=== PATIENT | male | born 1980 | race Caucasian/White ===

== ENCOUNTER 2017-01-20 09:21 | Emergency (ER) | payer SELFPAY ==
[~2017-01-20] VITALS: Wt 80.0 kg
[2017-01-20] MEDS ORDERED: LORAZEPAM 2 MG INJ IV STA (09:23)
[2017-01-20] MEDS ORDERED: SOD CHLORIDE 0.9% 1,000 ML IV STA (09:23)
[2017-01-20 09:24] VITALS: Wt 80.0 kg
[2017-01-20] MEDS ORDERED: OLANZAPINE (ODT) 5 MG TAB ODT ONE (09:30)
--- NOTE | 2017-01-20 09:51 | PSY ---
Date/Time of Note Date/Time of Note DATE: 01/20/17 TIME: 12:47 Psychiatric Subjective Eval Consent Pt consented to telemedicine: Yes Subjective Evaluation Patient location: emergency Chief Complaint: ams found by bystander with psychomotor agitation possible from meth use History of present illness HPI: The patient is a 37 yo male (possibly to female transgender as pt prefers to be called "Jaylyn") patient with a self reported ho schizophrenia and bipolar disorder. Very limited interview due to severe psychosis. Reprots was using meth and has SI. Was unable to report anything else. past Psych Hx: pt reports ho schizophrenia, unable to report anything else due to psychosis PMhx: unable to report anything else due to psychosis Meds: unable to report anything else due to psychosis All: unable to report anything else due to psychosis MSe: pt rocking head back and forth, moaning vs conversing with likely AVH[facility] ( very internally preoccupied), barely able to enage in an interview, does report si Imp 37 yo male with ho psychosis with marked psychosis in context of methamphetamine use -risperidone 2mg po and atiavn 2mg po X1 now -for moderate agitation risperidone 2mg po and atiavn 2mg po prn -for severe agitation haldol 5mg IM, ativan 2mg IM, cogentin 1mg IM -utox -pt will eed 5150 due to grave disability Allergies: Coded Allergies: Unknown: Unable to obtain (Unverified , 01/20/17) BJORN LECHUGA Jan 20, 2017 09:51
[2017-01-20 09:58] LABS: ADD SCAN DIFF NO
[2017-01-20 10:15] LABS: BASOPHILS % 0.3 % (0.0-2.0); HEMATOCRIT 37.4 % (42.0-52.0); HEMOGLOBIN 12.7 g/dl (14.0-18.0); LYMPHOCYTES # 1.5 10^3/ul (0.8-2.9); MEAN CORPUSCULAR HEMOGLOBIN 30.6 pg (29.0-33.0); MEAN CORPUSCULAR VOLUME 90.1 fl (82.0-101.0); MONOCYTE # 0.8 10^3/ul (0.3-0.9); MONOCYTES % 9.8 % (0.0-11.0); NEUTROPHIL # 6.2 10^3/ul (1.6-7.5); NEUTROPHILS % 72.6 % (39.0-77.0); PLATELET COUNT 249 10^3/UL (140-415); RED BLOOD COUNT 4.15 10^6/ul (4.70-6.10); RED CELL DISTRIBUTION WIDTH 12.1 % (11.5-14.5); WHITE BLOOD COUNT 8.6 10^3/ul (4.8-10.8)
[2017-01-20 10:29] LABS: ALANINE AMINOTRANSFERASE 132 IU/L (13-69); ALBUMIN 4.8 g/dl (3.3-4.9); ALBUMIN/GLOBULIN RATIO 1.54; ALKALINE PHOSPHATASE 51 IU/L (42-121); ANION GAP 25 (8-16); ASPARTATE AMINO TRANSFERASE 117 IU/L (15-46); BILIRUBIN,INDIRECT 0.9 mg/dl (0-1.1); BILIRUBIN,TOTAL 0.9 mg/dl (0.2-1.3); BLOOD UREA NITROGEN 19 mg/dl (7-20); CALCIUM 9.4 mg/dl (8.4-10.2); CARBON DIOXIDE 20 mmol/L (21-31); CHLORIDE 95 mmol/L (97-110); CREATININE 0.86 mg/dl (0.61-1.24); GLUCOSE 115 mg/dl (70-220); POTASSIUM 3.5 mmol/L (3.5-5.1); SODIUM 136 mmol/L (135-144); TOTAL PROTEIN 7.9 g/dl (6.1-8.1)
[2017-01-20 10:39] LABS: ETHANOL < 10.0 mg/dl
[2017-01-20] MEDS ORDERED: LORAZEPAM 1 MG TAB PO ONE (11:00)
[2017-01-20] MEDS ORDERED: RISPERIDONE 2 MG TAB PO ONE (11:00)
[2017-01-20 11:37] LABS: ACETAMINOPHEN < 10.0 ug/ml (10.0-30.0); SALICYLATE < 1.0 mg/dl (5.0-30.0)
--- NOTE | 2017-01-20 12:56 | ERA ---
ER Documentation Chief Complaint Date/Time DATE: 01/20/17 TIME: 12:52 Chief Complaint ams found by bystander with psychomotor agitation possible from meth use HPI Patient is a 37-year-old male with schizophrenia, bipolar disorder, and anxiety who presents with saying that he is having an anxiety attack and wants to kill himself. He was brought in by ambulance. He said that he smoked methamphetamines last night. He was brought in because a bystander called 911 and he was acting bizarre. He says "I am trying to kill myself". He denies homicidal ideation. Upon review of old medical records this is the patient's first visit to the emergency department. ROS All systems reviewed and are negative except as per history of present illness. Medications Home Meds Unable to Obtain Active Prescriptions or Reported Meds Allergies Allergies: Coded Allergies: Unknown: Unable to obtain (Unverified , 01/20/17) PMhx/Soc Hx Psychiatric Problems: Yes (BIPOLAR, SCHITZOPHRENIA) Hx Alcohol Use: No (DENIES) Hx Substance Use: Yes (METH THIS MORNING) Hx Tobacco Use: No (DENIES) Smoking Status: Never smoker FmHx Family History: diabetes Physical Exam Vitals Vital Signs Date Time Temp Pulse Resp B/P Pulse Ox O2 Delivery O2 Flow Rate FiO2 01/20/17 12:37 98.1 97 16 118/68 98 Room Air 01/20/17 10:59 107 98 01/20/17 09:25 98.9 139 20 119/68 97 01/20/17 09:24 98.1 120 20 109/58 99 Physical Exam Const: Altered and confused Head: Atraumatic Eyes: Normal Conjunctiva ENT: Normal External Ears, Nose and Mouth. Neck: Full range of motion..~ No meningismus. Resp: Clear to auscultation bilaterally Cardio: Regular rate and rhythm, no murmurs Abd: Soft, non tender, non distended. Normal bowel sounds Skin: No petechiae or rashes Back: No midline or flank tenderness Ext: No cyanosis, or edema Neur: Awake but flight of ideas Psych: Flight of ideas, psychomotor agitation, and suicidal ideation Result Diagram: 01/20/17 0945 01/20/17 0945 Results 24 hrs Laboratory Tests Test 01/20/17 09:45 White Blood Count 8.610^3/ul Red Blood Count 4.1510^6/ul Hemoglobin 12.7g/dl Hematocrit 37.4% Mean Corpuscular Volume 90.1fl Mean Corpuscular Hemoglobin 30.6pg Mean Corpuscular Hemoglobin Concent 34.0g/dl Red Cell Distribution Width 12.1% Platelet Count 05968^3/UL Mean Platelet Volume 10.0fl Neutrophils % 72.6% Lymphocytes % 17.0% Monocytes % 9.8% Eosinophils % 0.0% Basophils % 0.3% Nucleated Red Blood Cells % 0.0/100WBC Neutrophils # 6.210^3/ul Lymphocytes # 1.510^3/ul Monocytes # 0.810^3/ul Eosinophils # 0.010^3/ul Basophils # 0.010^3/ul Nucleated Red Blood Cells # 0.010^3/ul Sodium Level 136mmol/L Potassium Level 3.5mmol/L Chloride Level 95mmol/L Carbon Dioxide Level 20mmol/L Anion Gap 25 Blood Urea Nitrogen 19mg/dl Creatinine 0.86mg/dl Glucose Level 115mg/dl Calcium Level 9.4mg/dl Total Bilirubin 0.9mg/dl Direct Bilirubin 0.00mg/dl Indirect Bilirubin 0.9mg/dl Aspartate Amino Transf (AST/SGOT) 117IU/L Alanine Aminotransferase (ALT/SGPT) 132IU/L Alkaline Phosphatase 51IU/L Total Protein 7.9g/dl Albumin 4.8g/dl Globulin 3.10g/dl Albumin/Globulin Ratio 1.54 Salicylates Level < 1.0mg/dl Acetaminophen Level < 10.0ug/ml Ethyl Alcohol Level < 10.0mg/dl Current Medications Medications (Trade) Dose Ordered Sig/Mj Route PRN Reason Start Time Stop Time Status Last Admin Dose Admin Sodium Chloride (NS) 1,000 ml @ 1,000 mls/hr Q1H STAT IV 01/20/17 09:23 01/20/17 10:22 DC 01/20/17 10:11 Lorazepam (Ativan) 1 mg ONCE STAT IV 01/20/17 09:23 01/20/17 09:25 DC 01/20/17 09:59 Olanzapine (Zyprexa Zydis) 5 mg ONCE ONCE ODT 01/20/17 09:30 01/20/17 09:31 DC 7/4/17 10:10 Risperidone (Risperdal) 2 mg ONCE ONCE PO 01/20/17 11:00 01/20/17 11:01 DC 01/20/17 10:43 Lorazepam (Ativan) 2 mg ONCE ONCE PO 01/20/17 11:00 01/20/17 11:01 DC 01/20/17 10:43 Procedures/MDM EKG read by me: Rate/Rhythm: Sinus tachycardia Intervals: Normal Impression: Sinus tachycardia without ischemia Smoking Cessation Therapy: Pt. was lectured for greater than 3 minutes on the health risks of continued smoking and the benefits of cessation. Patient is a 37-year-old male who presents with suicidal thoughts and anxiety. The patient is now medically cleared. He was recommended a 5150 hold by psychiatry. I have given Ativan, Zyprexa, and Risperdal and the patient will be transferred to a psychiatric facility. I do believe that methamphetamines is playing a part in his presentation however I do believe there is underlying psychosis. Departure Diagnosis: Primary Impression: Drug abuse Additional Impression: Psychological disorder Condition: Fair Patient Instructions: Drug Abuse, Psychosis JESSICA OSMAN MD Jan 20, 2017 12:56
[2017-01-20 20:25] LABS: ADD UMIC NO; UR ASCORBIC ACID NEGATIVE (NEGATIVE); UR BILIRUBIN (Dip) NEGATIVE (NEGATIVE); UR BLOOD (Dip) NEGATIVE (NEGATIVE); UR CLARITY CLEAR (CLEAR); UR COLOR YELLOW (YELLOW); UR GLUCOSE (Dip) NEGATIVE (NEGATIVE); UR KETONES (Dip) 2+ mg/dL (NEGATIVE); UR LEUKOCYTE ESTERASE (Dip) NEGATIVE Leu/ul (NEGATIVE); UR NITRITE (Dip) NEGATIVE (NEGATIVE); UR SPECIFIC GRAVITY (Dip) 1.019 (1.003-1.030); UR TOTAL PROTEIN (Dip) NEGATIVE (NEGATIVE); UR UROBILINOGEN (Dip) NEGATIVE (NEGATIVE)
[2017-01-20 20:43] LABS: CANNABINOIDS Negative (NEGATIVE)
[2017-01-20 20:46] LABS: BARBITURATES Negative (NEGATIVE); BENZODIAZEPINES Negative (NEGATIVE); COCAINE Negative (NEGATIVE); OPIATES Negative (NEGATIVE)
[2017-01-21 09:15] VITALS: BP 109/56; PULSE 86; RESP 18; TEMP 97.3
== END 2017-01-21 09:31 | disposition short-term general hospital (02) ==
LOC: E/R 09:21
DX: F15.10 Other stimulant abuse, uncomplicated (principal); R40.2242 Coma scale, best verbal response, confused conversation, at arrival to emergency department; F99 Mental disorder, not otherwise specified; R40.2142 Coma scale, eyes open, spontaneous, at arrival to emergency department; R40.2362 Coma scale, best motor response, obeys commands, at arrival to emergency department
CPT/HCPCS: 80053; 80306; 80307; 81003; 85025; 93005; J2060; J7030; 36415; 96361; 96374